=== PATIENT | female | born 1985 | race Caucasian/White ===

== ENCOUNTER 2019-04-27 23:37 | Emergency (ER) | payer OTHER ==
[~2019-04-27] VITALS: Ht 160 cm; Wt 64.0 kg
[2019-04-27 23:42] VITALS: Ht 160 cm; Wt 64.0 kg
[2019-04-28 01:55] VITALS: BP 128/82
== END 2019-04-28 01:55 | disposition home or self-care (01) ==
LOC: ED 23:37
DX: K08.89 Other specified disorders of teeth and supporting structures (principal)
CPT/HCPCS: J0696

== ENCOUNTER 2019-09-17 09:38 | Emergency (ER) | payer OTHER ==
[~2019-09-17] VITALS: Ht 162.6 cm; Wt 57.2 kg
[2019-09-17 10:59] VITALS: Ht 162.6 cm; Wt 57.2 kg
[2019-09-17 12:51] VITALS: BP 118/76
== END 2019-09-17 14:49 | disposition home or self-care (01) ==
LOC: ED 09:38
DX: B34.9 Viral infection, unspecified (principal)
CPT/HCPCS: 87804; J1200; J1885; J2405; J7030; J8597